=== PATIENT | female | born 1930 ===

== ENCOUNTER 2017-03-15 09:56 | Inpatient (IN) | payer MEDICAID, MEDICARE ==
[2017-03-15 09:56] VITALS: BMI 25.5
[2017-03-15] MEDS ORDERED: Albuterol-Ipratrop 3 mg / 0.5 (3 ml) UD INH STA ×3 (10:11→10:23)
--- NOTE | 2017-03-15 10:19 | C.PDOC ---
History Of Present Illness 86 yr old female with PMHx of asthma, presents to the ER with complaints of SOB , wheezing and dry cough for the past 3 days, worse today. Patient states she has been taking nebulizer treatments at home with no relief. Reports chest pain with cough. Denies fever, nausea, vomiting, abdominal pain, weakness or numbness. Time Seen by Provider: 03/15/17 10:09 Chief Complaint (Nursing): Shortness Of Breath History Per: Patient History/Exam Limitations: no limitations Onset/Duration Of Symptoms: Days (3), Worse Since (today ) Current Symptoms Are (Timing): Still Present Past Medical History Reviewed: Historical Data, Nursing Documentation, Vital Signs Vital Signs: Last Vital Signs Temp 97.5 F L 03/15/17 15:57 Pulse 84 03/15/17 15:57 Resp 18 03/15/17 15:57 BP 125/70 03/15/17 15:57 Pulse Ox 98 03/15/17 15:57 - Medical History PMH: Alzheimer's Disease, Arthritis, Asthma, Back Problems, Gastritis, HTN Surgical History: Pacemaker, - [facility] Procedures INITIAL INSERT TRANS LEADS INTO [employer] (04/19/15) INITIAL INSERTION OF DUAL-CHAMBER DEVICE (04/19/15) Family History: States: No Known Family Hx - Social History Hx Alcohol Use: No Hx Substance Use: No - Immunization History Hx Tetanus Toxoid Vaccination: No Hx Influenza Vaccination: No Hx Pneumococcal Vaccination: Yes Review Of Systems Except As Marked, All Systems Reviewed And Found Negative. Constitutional: Negative for: Fever Cardiovascular: Positive for: Chest Pain (With coughing ) Respiratory: Positive for: Cough (Dry ), Shortness of Breath, Wheezing Gastrointestinal: Negative for: Nausea, Vomiting, Abdominal Pain Neurological: Negative for: Weakness, Numbness Physical Exam - Physical Exam Appears: Non-toxic, No Acute Distress Skin: Warm, Dry, No Rash Head: Atraumatic, Normacephalic Oral Mucosa: Moist Chest: Symmetrical, No Tenderness Cardiovascular: Rhythm Regular, No Murmur Respiratory: No Rales, Wheezing (Diffuse ) Gastrointestinal/Abdominal: Normal Exam, Soft, No Tenderness, No Guarding, No Rebound Extremity: Normal ROM, No Swelling Neurological/Psych: Oriented x3, Normal Speech, Normal Motor ED Course And Treatment - Laboratory Results Result Diagrams: 03/15/17 11:51 03/15/17 10:33 ECG: Interpreted By Me, Viewed By Me ECG Rhythm: V Paced ECG Interpretation: Abnormal Interpretation Of ECG: No stemi. Rate From EC (BPM ) O2 Sat by Pulse Oximetry: 98 (RA ) Pulse Ox Interpretation: Normal - Radiology CXR: Viewed By Me, Read By Radiologist CXR Interpretation: Yes: No Acute Disease Medical Decision Making Medical Decision Making: PLAN: * CXR * EKG * Troponin * CBC * CMP * Duoneb INH * Solumedrol IVP Disposition - Disposition Disposition: HOME/ ROUTINE Disposition Time: 13:00 Condition: STABLE - Clinical Impression Clinical Impression: Asthma exacerbation, Thrombocytopenia - Scribe Statement The provider has reviewed the documentation as recorded by the Donita Cameron Provider Attestation: All medical record entries made by the Donita were at my direction and personally dictated by me. I have reviewed the chart and agree that the record accurately reflects my personal performance of the history, physical exam, medical decision making, and the department course for this patient. I have also personally directed, reviewed, and agree with the discharge instructions and disposition.
[2017-03-15 11:11] LABS: ALBUMIN 4.4 g/dL (3.5-5.0)
[2017-03-15 11:14] LABS: ALB/GLOB RATIO 1.1 (1.0-2.1)
[2017-03-15 11:15] LABS: CALCIUM 9.2 mg/dl (8.6-10.4)
[2017-03-15 11:26] LABS: TROPONIN I 0.027 ng/mL (0.00-0.120)
[2017-03-15 11:59] LABS: BASO # 0.1 K/uL (0.0-0.2); BASO % 0.7 % (0.0-2.0); EOS # 0.1 K/uL (0.0-0.7); EOS % 0.5 % (0.0-4.0); LYMPH # 2.9 K/uL (1.0-4.3); LYMPH % 26.2 % (20.0-40.0); MEAN CELL VOLUME 96.9 fL (81.0-99.0); MEAN CORPUSCULAR HEMOGLOBIN 31.9 pg (27.0-31.0); MEAN PLATELET VOLUME 17.1 fL (7.2-11.7); MONO # 4.7 K/uL (0.0-0.8); MONO % 41.7 % (0.0-10.0); NEUT # 3.5 K/uL (1.8-7.0); NEUT % 30.9 % (50.0-75.0); NRBC % 0.6 % (0.0-2.0); PLATELET COUNT 50 K/uL (130-400); RBC 3.43 Mil/uL (3.80-5.20); RED CELL DISTRIBUTION WIDTH 12.5 % (11.5-14.5); WHITE BLOOD COUNT 11.2 K/uL (4.8-10.8)
--- NOTE | 2017-03-15 12:05 | RAD ---
PROCEDURE: CHEST RADIOGRAPH, 1 VIEW HISTORY: SOB COMPARISON: None available. FINDINGS: LUNGS: Clear. PLEURA: No pneumothorax or pleural fluid seen. CARDIOVASCULAR: Normal heart size. Permanent pacemaker. OSSEOUS STRUCTURES: No significant abnormalities. VISUALIZED UPPER ABDOMEN: Normal. OTHER FINDINGS: None. IMPRESSION: No active disease.
[2017-03-15 12:16] LABS: BANDS 8 % (0-2); BASOPHIL 1 % (0-2); LARGE PLATELETS PRESENT; LYMPHOCYTE 21 % (20-40); METAMYELOCYTE 1 % (0-0); MONOCYTE 36 % (0-10); MYELOCYTE 1 % (0-0); NEUTROPHIL 32 % (50-75); OVALOCYTES SLIGHT; PLATELET ESTIMATE DECREASED (NORMAL); TOTAL CELLS COUNTED 100
[2017-03-15] MEDS ORDERED: Azithromycin 500 MG in Sodium Chloride 0.9% 250 ML IVPB STA (12:42)
[2017-03-15] MEDS ORDERED: Azithromycin 500mg/250ML NS 500 MG/250 ML BAG IVPB ONE (12:54)
--- NOTE | 2017-03-15 14:52 | CP.PCM.CON ---
History of Present Illness - History of Present Illness History of Present Illness: reason for consultation: shortness of breath and wheezing 86-year-old female presented to emergency room complaining of shortness of breath for the past few days. Shortness of breath also associated with abdominal pain mostly after eating. Denies cough, denies fever chills, denies nausea vomiting or diarrhea Review of Systems - Review of Systems All systems: reviewed and no additional remarkable complaints except (shortness of breat cough and wheezing) Past Patient History - Infectious Disease Hx of Infectious Diseases: None - Past Medical History & Family History Past Medical History?: Yes - Past Social History Smoking Status: Never Smoked - CARDIAC Hx Hypertension: Yes Hx Pacemaker: Yes - PULMONARY Hx Asthma: Yes - NEUROLOGICAL Hx Alzheimer's Disease: Yes Hx Dizziness: Yes - HEENT Hx HEENT Problems: No Hx Cataracts: Yes (surgery b/l eyes) - RENAL Hx Chronic Kidney Disease: No - ENDOCRINE/METABOLIC Hx Hypothyroidism: No - HEMATOLOGICAL/ONCOLOGICAL Hx Human Immunodeficiency Virus (HIV): No - INTEGUMENTARY Hx Dermatological Problems: No - MUSCULOSKELETAL/RHEUMATOLOGICAL Hx Arthritis: Yes Hx Falls: Yes Hx Fractures: Yes (3 ribs 2009) - GASTROINTESTINAL Hx Gastritis: Yes Hx Hemorrhoids: Yes - GENITOURINARY/GYNECOLOGICAL Hx Sexually Transmitted Disorders: No Hx Uterine Cancer: Yes (46 years ago) - PSYCHIATRIC Hx Substance Use: No - SURGICAL HISTORY Hx Surgeries: Yes Hx Breast Biopsy: Yes Hx Section: Yes (X 3) Hx Hysterectomy: Yes (family not sure) Other/Comment: RIGHT EYE SURGERY. PACE MAKER - ANESTHESIA Hx Anesthesia: Yes Hx Anesthesia Reactions: No Hx Malignant Hyperthermia: No Has any member of the family had a problem w/ anesthesia?: No Meds Allergies/Adverse Reactions: Allergies Allergy/AdvReac Type Severity Reaction Status Date / Time diclofenac Allergy RASH Verified 03/15/17 10:06 Penicillins Allergy RASH Verified 03/15/17 10:06 - Medications Medications: Current Medications Albuterol/Ipratropium (Duoneb 3 Mg/0.5 Mg (3 Ml) Ud) 3 ml INH RQ6 [facility] Famotidine (Pepcid) 20 mg IVP Q12 [facility] Methylprednisolone (Solu-Medrol) 40 mg IV Q8 [facility] Physical Exam - Head Exam Head Exam: ATRAUMATIC, NORMOCEPHALIC - Eye Exam Eye Exam: Normal appearance - ENT Exam ENT Exam: Mucous Membranes Moist - Neck Exam Neck exam: Positive for: Normal Inspection - Respiratory Exam Respiratory Exam: Rhonchi, Wheezes - Cardiovascular Exam Cardiovascular Exam: REGULAR RHYTHM - GI/Abdominal Exam GI & Abdominal Exam: Normal Bowel Sounds - Extremities Exam Extremities exam: Positive for: normal inspection - Neurological Exam Neurological exam: Alert Results - Vital Signs Recent Vital Signs: Last Vital Signs Temp 98.3 F 03/15/17 12:49 Pulse 74 03/15/17 12:49 Resp 21 03/15/17 12:49 BP 139/48 L 03/15/17 12:49 Pulse Ox 97 03/15/17 12:49 - Labs Result Diagrams: 03/15/17 11:51 03/15/17 10:33 Assessment & Plan (1) Asthma Status: Acute Comment: patient started on IV steroids, nebulizer treatment. Continue Pepcid. Hematology workup for thrombocytopenia. Consider CAT scan of the abdomen
--- NOTE | 2017-03-15 18:01 | CP.PCM.CON ---
History of Present Illness - History of Present Illness History of Present Illness: PATIENT SEEN. FULL CONSULT WILL BE DICTATED Past Patient History - Infectious Disease Hx of Infectious Diseases: None - Past Medical History & Family History Past Medical History?: Yes - Past Social History Smoking Status: Never Smoked - CARDIAC Hx Hypertension: Yes Hx Pacemaker: Yes - PULMONARY Hx Asthma: Yes - NEUROLOGICAL Hx Alzheimer's Disease: Yes Hx Dizziness: Yes - HEENT Hx HEENT Problems: No Hx Cataracts: Yes (surgery b/l eyes) - RENAL Hx Chronic Kidney Disease: No - ENDOCRINE/METABOLIC Hx Hypothyroidism: No - HEMATOLOGICAL/ONCOLOGICAL Hx Human Immunodeficiency Virus (HIV): No - INTEGUMENTARY Hx Dermatological Problems: No - MUSCULOSKELETAL/RHEUMATOLOGICAL Hx Arthritis: Yes Hx Falls: Yes Hx Fractures: Yes (3 ribs 2009) - GASTROINTESTINAL Hx Gastritis: Yes Hx Hemorrhoids: Yes - GENITOURINARY/GYNECOLOGICAL Hx Sexually Transmitted Disorders: No Hx Uterine Cancer: Yes (46 years ago) - PSYCHIATRIC Hx Substance Use: No - SURGICAL HISTORY Hx Surgeries: Yes Hx Breast Biopsy: Yes Hx Section: Yes (X 3) Hx Hysterectomy: Yes (family not sure) Other/Comment: RIGHT EYE SURGERY. PACE MAKER - ANESTHESIA Hx Anesthesia: Yes Hx Anesthesia Reactions: No Hx Malignant Hyperthermia: No Has any member of the family had a problem w/ anesthesia?: No Meds Allergies/Adverse Reactions: Allergies Allergy/AdvReac Type Severity Reaction Status Date / Time diclofenac Allergy RASH Verified 03/15/17 10:06 Penicillins Allergy RASH Verified 03/15/17 10:06 - Medications Medications: Current Medications Albuterol/Ipratropium (Duoneb 3 Mg/0.5 Mg (3 Ml) Ud) 3 ml INH RQ6 [facility] Famotidine (Pepcid) 20 mg IVP DAILY [facility] Methylprednisolone (Solu-Medrol) 40 mg IV Q8 [facility] Results - Vital Signs Recent Vital Signs: Last Vital Signs Temp 97.5 F L 03/15/17 15:57 Pulse 84 03/15/17 15:57 Resp 18 03/15/17 15:57 BP 125/70 03/15/17 15:57 Pulse Ox 98 03/15/17 15:57 - Labs Result Diagrams: 03/15/17 11:51 03/15/17 10:33
[2017-03-15] MEDS: Albuterol-Ipratrop 3 mg / 0.5 (3 ml) UD INH SCH (19:41)
[2017-03-15] MEDS ORDERED: Albuterol 0.083% Inhal Sol (2.5 mg/3 mL) UD INH PRN (19:48)
[2017-03-15] MEDS: Divalproex 125 mg Sprinkle Capsule PO SCH (20:55)
[2017-03-15] MEDS: MethylPREDNISolone 40 mg Vial IV SCH (21:41)
[2017-03-16] MEDS: Albuterol-Ipratrop 3 mg / 0.5 (3 ml) UD INH SCH ×4 (01:08→19:30)
[2017-03-16] MEDS: MethylPREDNISolone 40 mg Vial IV SCH ×3 (05:32→21:10)
[2017-03-16 08:33] LABS: HEMOGLOBIN 10.7 g/dL (11.0-16.0); MEAN CELL VOLUME 96.6 fL (81.0-99.0); MEAN CORPUSCULAR HEMOGLOBIN 32.1 pg (27.0-31.0); MEAN CORPUSCULAR HGB CONC 33.3 g/dL (33.0-37.0); MEAN PLATELET VOLUME 16.9 fL (7.2-11.7); RBC 3.34 Mil/uL (3.80-5.20); RED CELL DISTRIBUTION WIDTH 12.4 % (11.5-14.5)
[2017-03-16 08:51] LABS: CALCIUM 9.1 mg/dl (8.6-10.4); IRON 26 ug/dL (37-170)
[2017-03-16 08:55] LABS: WHITE BLOOD COUNT 4.3 K/uL (4.8-10.8)
[2017-03-16 09:01] LABS: % IRON SATURATION 8 (20-55); TOTAL IRON BINDING CAPACITY 317 ug/dL (250-450)
[2017-03-16] MEDS: Azithromycin 500 MG in Sodium Chloride 0.9% 250 ML IVPB SCH (10:50)
[2017-03-16] MEDS: Potassium Chloride 20 mEq ER Tab PO SCH (10:50)
[2017-03-16 11:02] LABS: FOLATE 12.1 ng/mL
--- NOTE | 2017-03-16 15:25 | CP.PCM.HP ---
History of Present Illness - History of Present Illness History of Present Illness: cc sob . abdominal pain nez perce 86 years old lady new for me , came to [facility] , with sob . and abdominal pain .had h/o asthma , got neb. treament at home but not helpful , was seen by gi ,[facility] . offered some testing . but pt never had chance to go for gi testing ,now we will call gi consult also . pt is coughing , with sob , pul. consult called / Present on Admission - Present on Admission Any Indicators Present on Admission: No History of DVT/PE: No History of Uncontrolled Diabetes: No Urinary Catheter: No Decubitus Ulcer Present: No Review of Systems - Review of Systems Systems not reviewed;Unavailable: Dementia - Constitutional Constitutional: As Per HPI, Fatigue - EENT Eyes: As Per HPI Ears: As Per HPI Nose/Mouth/Throat: As Per HPI - Breasts Breasts: As Per HPI - Cardiovascular Cardiovascular: As Per HPI - Respiratory Respiratory: As Per HPI, Cough, Wheezing, Chest Congestion - Gastrointestinal Gastrointestinal: As Per HPI, Abdominal Pain, Bloating - Genitourinary Genitourinary: As Per HPI - Integumentary Integumentary: As Per HPI - Neurological Neurological: As Per HPI - Psychiatric Psychiatric: As Per HPI - Endocrine Endocrine: As Per HPI - Hematologic/Lymphatic Hematologic: As Per HPI Past Patient History - Infectious Disease Hx of Infectious Diseases: None - Past Medical History & Family History Past Medical History?: Yes - Past Social History Smoking Status: Never Smoked - CARDIAC Hx Hypertension: Yes Hx Pacemaker: Yes - PULMONARY Hx Asthma: Yes - NEUROLOGICAL Hx Alzheimer's Disease: Yes - HEENT Hx HEENT Problems: No Hx Cataracts: Yes (surgery b/l eyes) - RENAL Hx Chronic Kidney Disease: No - ENDOCRINE/METABOLIC Hx Hypothyroidism: No - HEMATOLOGICAL/ONCOLOGICAL Hx Human Immunodeficiency Virus (HIV): No - INTEGUMENTARY Hx Dermatological Problems: No - MUSCULOSKELETAL/RHEUMATOLOGICAL Hx Arthritis: Yes - GASTROINTESTINAL Hx Gastritis: Yes - GENITOURINARY/GYNECOLOGICAL Hx Sexually Transmitted Disorders: No Hx Uterine Cancer: Yes (46 years ago) - PSYCHIATRIC Hx Substance Use: No - SURGICAL HISTORY Hx Surgeries: Yes Hx Breast Biopsy: Yes Hx Section: Yes (X 3) Hx Hysterectomy: Yes (family not sure) Other/Comment: RIGHT EYE SURGERY. PACE MAKER - ANESTHESIA Hx Anesthesia: Yes Hx Anesthesia Reactions: No Hx Malignant Hyperthermia: No Has any member of the family had a problem w/ anesthesia?: No Meds Allergies/Adverse Reactions: Allergies Allergy/AdvReac Type Severity Reaction Status Date / Time diclofenac Allergy RASH Verified 03/15/17 10:06 Penicillins Allergy RASH Verified 03/15/17 10:06 Physical Exam - Constitutional Appears: Well - Head Exam Head Exam: ATRAUMATIC, NORMAL INSPECTION, NORMOCEPHALIC - Eye Exam Eye Exam: EOMI, Normal appearance, PERRL Pupil Exam: NORMAL ACCOMODATION, PERRL - ENT Exam ENT Exam: Mucous Membranes Moist, Normal Exam - Neck Exam Neck exam: Positive for: Normal Inspection - Respiratory Exam Respiratory Exam: Clear to Auscultation Bilateral, NORMAL BREATHING PATTERN - Cardiovascular Exam Cardiovascular Exam: REGULAR RHYTHM - GI/Abdominal Exam GI & Abdominal Exam: Normal Bowel Sounds, Soft. absent: Tenderness - Rectal Exam Rectal Exam: NORMAL INSPECTION - Exam Exam: Circumcision, NORMAL INSPECTION External exam: NORMAL EXTERNAL EXAM Speculum exam: NORMAL SPECULUM EXAM Bimanual exam: NORMAL BIMANUAL EXAM - Extremities Exam Extremities exam: Positive for: normal inspection - Back Exam Back exam: NORMAL INSPECTION - Neurological Exam Neurological exam: Alert, CN II-XII Intact, Normal Gait, Oriented x3, Reflexes Normal - Psychiatric Exam Psychiatric exam: Normal Affect, Normal Mood - Skin Skin Exam: Dry, Intact, Normal Color, Warm Results - Vital Signs Recent Vital Signs: Last Vital Signs Temp 98 F 03/16/17 07:00 Pulse 90 03/16/17 07:00 Resp 20 03/16/17 07:00 BP 121/55 L 03/16/17 07:00 Pulse Ox 100 03/16/17 07:00 - Labs Result Diagrams: 03/16/17 08:25 03/16/17 08:25 Labs: Laboratory Results - last 24 hr 03/15/17 03/16/17 03/16/17 21:23 06:38 08:25 WBC 4.3 L D RBC 3.34 L Hgb 10.7 L Hct 32.2 L MCV 96.6 MCH 32.1 H MCHC 33.3 RDW 12.4 Plt Count 52 L MPV 16.9 H Differential Comment Sodium Potassium Chloride Carbon Dioxide Anion Gap BUN Creatinine Est GFR ( Amer) Est GFR (Non-Af Amer) POC Glucose (mg/dL) 249 H 189 H Random Glucose Hemoglobin A1c Calcium Iron TIBC % Saturation Triglycerides Cholesterol LDL Cholesterol Direct HDL Cholesterol Vitamin B12 Folate TSH 3rd Generation 03/16/17 03/16/17 03/16/17 08:25 08:25 08:25 WBC RBC Hgb Hct MCV MCH MCHC RDW Plt Count MPV Differential Comment Sodium 135 Potassium 3.4 L Chloride 95 L Carbon Dioxide 23 Anion Gap 20 BUN 31 H Creatinine 1.6 H Est GFR ( Amer) 37 Est GFR (Non-Af Amer) 30 POC Glucose (mg/dL) Random Glucose 174 H Hemoglobin A1c 6.1 Calcium 9.1 Iron 26 L TIBC 317 % Saturation 8 L Triglycerides 68 Cholesterol 142 LDL Cholesterol Direct 56 HDL Cholesterol 58 Vitamin B12 956 H Folate 12.1 TSH 3rd Generation 1.00 Assessment & Plan (1) Asthma Status: Acute (2) Asthma exacerbation Status: Acute (3) Thrombocytopenia Status: Acute (4) AV block Status: Acute (5) Abdominal pain Status: Acute Comment: gi consult called . gi series orderd ,made pepcid bid . (6) Blood pressure elevated Status: Acute (7) Chest pain Status: Acute (8) Chronic headache disorder Status: Acute Decision To Admit - Admit Certification Admit to Inpatient:: need more than 2 days in the hospital .
--- NOTE | 2017-03-16 15:35 | CP.PCM.PN ---
Subjective - Date & Time of Evaluation Date of Evaluation: 03/16/17 Time of Evaluation: 13:00 - Subjective Subjective: patient seen and examined Sitting comfortably in no acute distress Still complaining of cough and wheezing no further abdominal pain Objective - Vital Signs/Intake and Output Vital Signs (last 24 hours): Temp Pulse Resp BP Pulse Ox 98 F 90 20 121/55 L 100 03/16/17 07:00 03/16/17 07:00 03/16/17 07:00 03/16/17 07:00 03/16/17 07:00 Intake and Output: 03/16/17 03/16/17 06:59 18:59 Output Total 0 Balance 0 - Medications Medications: Current Medications Albuterol Sulfate (Albuterol 0.083% Inhal Juliana (2.5 Mg/3 Ml) Ud) 2.5 mg INH RQ6 PRN PRN Reason: Shortness of Breath Albuterol/Ipratropium (Duoneb 3 Mg/0.5 Mg (3 Ml) Ud) 3 ml INH RQ6 [facility] Last Admin: 03/16/17 13:31 Dose: 3 ml Aspirin (Ecotrin) 81 mg PO DAILY [facility] Last Admin: 03/16/17 10:50 Dose: 81 mg Divalproex Sodium (Depakote Sprinkles) 125 mg PO DAILY@1700 [facility] Last Admin: 03/15/17 20:55 Dose: 125 mg Donepezil HCl (Aricept) 10 mg PO HS [facility] Last Admin: 03/15/17 21:41 Dose: 10 mg Famotidine (Pepcid) 20 mg PO DAILY [facility] Hydrochlorothiazide (Hydrodiuril) 25 mg PO DAILY [facility] Last Admin: 03/16/17 10:50 Dose: 25 mg Azithromycin 500 mg/ Sodium (Chloride) 250 mls @ 250 mls/hr IVPB DAILY [facility] Last Admin: 03/16/17 10:50 Dose: 250 mls/hr Iron (Ferocon) 1 cap PO DAILY [facility] Memantine (Namenda) 10 mg PO DAILY [facility] Last Admin: 03/16/17 10:50 Dose: 10 mg Methylprednisolone (Solu-Medrol) 20 mg IV Q8 [facility] Metoprolol Tartrate (Lopressor) 50 mg PO BID [facility] Last Admin: 03/16/17 10:50 Dose: 50 mg Potassium Chloride (K-Dur 20 Meq Er Tab) 20 meq PO DAILY [facility] Last Admin: 03/16/17 10:50 Dose: 20 meq Potassium Chloride (Klor-Con 10) 10 meq PO BRK [facility] - Labs Labs: 03/16/17 08:25 03/16/17 08:25 - Head Exam Head Exam: ATRAUMATIC, NORMOCEPHALIC - Eye Exam Eye Exam: Normal appearance - ENT Exam ENT Exam: Mucous Membranes Moist - Neck Exam Neck Exam: Normal Inspection - Respiratory Exam Respiratory Exam: Rhonchi, Wheezes Assessment and Plan (1) Asthma Assessment & Plan: continue nebulizer treatment and taper steroids Status: Acute
[2017-03-16] MEDS ORDERED: Divalproex 125 mg Sprinkle Capsule PO SCH (17:00)
[2017-03-16] MEDS: Divalproex 125 mg Sprinkle Capsule PO SCH (17:29)
[2017-03-16] MEDS: Potassium Chloride 10 mEq ER Tab PO SCH (17:29)
[2017-03-16] MEDS: Ferrous Fum/Folic Acid/IF/VI 1 Cap PO SCH (17:29)
[2017-03-16] MEDS: Albuterol 0.083% Inhal Sol (2.5 mg/3 mL) UD INH PRN (21:14)
[2017-03-16] MEDS ORDERED: Acetylcysteine 20% Inhal Soln (4ml) INH STA (21:34)
[2017-03-17] MEDS: Albuterol-Ipratrop 3 mg / 0.5 (3 ml) UD INH SCH ×4 (01:59→19:41)
[2017-03-17] MEDS: guaiFENesin 200 mg/10 ml Syrup UD PO PRN (06:51)
[2017-03-17] MEDS: MethylPREDNISolone 40 mg Vial IV SCH ×3 (06:51→21:15)
[2017-03-17 07:38] LABS: HEMOGLOBIN 10.8 g/dL (11.0-16.0); MEAN CELL VOLUME 97.2 fL (81.0-99.0); MEAN CORPUSCULAR HGB CONC 32.9 g/dL (33.0-37.0); MEAN PLATELET VOLUME 17.1 fL (7.2-11.7); RBC 3.39 Mil/uL (3.80-5.20); RED CELL DISTRIBUTION WIDTH 12.5 % (11.5-14.5)
[2017-03-17 07:52] LABS: CALCIUM 9.3 mg/dl (8.6-10.4)
[2017-03-17] MEDS ORDERED: Barium Sulfate for Susp 98% w/w 340g Bottle ONE (07:57)
[2017-03-17] MEDS ORDERED: Barium Sulfate for Susp 96% w/w 176g Bottle PR ONE (07:57)
[2017-03-17] MEDS: Potassium Chloride 10 mEq ER Tab PO SCH (08:03)
[2017-03-17] MEDS: Azithromycin 500 MG in Sodium Chloride 0.9% 250 ML IVPB SCH (09:50)
[2017-03-17] MEDS: Ferrous Fum/Folic Acid/IF/VI 1 Cap PO SCH (09:51)
[2017-03-17] MEDS: Potassium Chloride 20 mEq ER Tab PO SCH (09:51)
--- NOTE | 2017-03-17 11:00 | CP.PCM.CON ---
<Ana Maria Brown - Last Filed: 03/17/17 11:04> History of Present Illness - History of Present Illness History of Present Illness: PGY4 GI Fellow Consult Note This is a 86yF with pmhx of Alzheimer's dementia, gastritis, asthma, HTN. Pt pw to ER with SOB and found to have asthma exacerbation.Pt was complaining about abdominal pain in the epigatric area however pt is a very poor historian due to her dementia. Per nursing staff, pt's daughter reports abdominal pain for a few months with a 20 pound weight loss and decreased appetite. Pt reports EGD in the past and colonoscopy recently. Pt says her pain is caused by reflux however denies heart burn. Pt is really unable to describe her pain but reports it is not associated with food and denies nausea, vomiting, diarrhea, constipation or bloating. A call was placed to pt's daughter, waiting a call back. Also, pt was apparently coming to the hospital for a upper GI series when she developed SOB. Pt is on pepcid as an outpt and had an Abdominal US and CTA/P in January 2017 with diverticulosis, mildly distended SB with wall thickening, gallbladder wnl. ROS:A 12pt ROS was obtained and was negative excpet as mentioned above. PmHx:as stated in HPI PsHX: unable to be obtained pt poor historian FHx: unable to be obtained pt poor historian SHx: unable to be obtained pt poor historian Review of Systems - Review of Systems Systems not reviewed;Unavailable: Respiratory Distress, Dementia - Respiratory Respiratory: Cough, Dyspnea, Dyspnea on Exertion, Wheezing - Gastrointestinal Gastrointestinal: Abdominal Pain, Heartburn. absent: Bloating (A 12pt ROS obtained as mentioned in HPI), Cramping, Diarrhea, Excessive Flatus, Hematemesis , Hematochezia, Melena, Nausea, Vomiting Past Patient History - Infectious Disease Hx of Infectious Diseases: None - Past Medical History & Family History Past Medical History?: Yes - Past Social History Smoking Status: Never Smoked - CARDIAC Hx Hypertension: Yes Hx Pacemaker: Yes - PULMONARY Hx Asthma: Yes - NEUROLOGICAL Hx Alzheimer's Disease: Yes - HEENT Hx HEENT Problems: No Hx Cataracts: Yes (surgery b/l eyes) - RENAL Hx Chronic Kidney Disease: No - ENDOCRINE/METABOLIC Hx Hypothyroidism: No - HEMATOLOGICAL/ONCOLOGICAL Hx Human Immunodeficiency Virus (HIV): No - INTEGUMENTARY Hx Dermatological Problems: No - MUSCULOSKELETAL/RHEUMATOLOGICAL Hx Arthritis: Yes - GASTROINTESTINAL Hx Gastritis: Yes - GENITOURINARY/GYNECOLOGICAL Hx Sexually Transmitted Disorders: No Hx Uterine Cancer: Yes (46 years ago) - PSYCHIATRIC Hx Substance Use: No - SURGICAL HISTORY Hx Surgeries: Yes Hx Breast Biopsy: Yes Hx Section: Yes (X 3) Hx Hysterectomy: Yes (family not sure) Other/Comment: RIGHT EYE SURGERY. PACE [employer] - ANESTHESIA Hx Anesthesia: Yes Hx Anesthesia Reactions: No Hx Malignant Hyperthermia: No Has any member of the family had a problem w/ anesthesia?: No Meds Allergies/Adverse Reactions: Allergies Allergy/AdvReac Type Severity Reaction Status Date / Time diclofenac Allergy RASH Verified 03/15/17 10:06 Penicillins Allergy RASH Verified 03/15/17 10:06 - Medications Medications: Current Medications Albuterol Sulfate (Albuterol 0.083% Inhal Juliana (2.5 Mg/3 Ml) Ud) 2.5 mg INH RQ2 PRN PRN Reason: Shortness of Breath Last Admin: 03/16/17 21:14 Dose: 2.5 mg Albuterol/Ipratropium (Duoneb 3 Mg/0.5 Mg (3 Ml) Ud) 3 ml INH RQ6 [facility] Last Admin: 03/17/17 08:17 Dose: 3 ml Aspirin (Ecotrin) 81 mg PO DAILY [facility] Last Admin: 03/17/17 09:51 Dose: 81 mg Divalproex Sodium (Depakote Sprinkles) 125 mg PO DAILY@1700 [facility] Last Admin: 03/16/17 17:29 Dose: 125 mg Donepezil HCl (Aricept) 10 mg PO DAILY@1700 [facility] Last Admin: 03/16/17 20:40 Dose: 10 mg Famotidine (Pepcid) 20 mg PO DAILY [facility] Last Admin: 03/17/17 09:51 Dose: 20 mg Guaifenesin (Robitussin) 200 mg PO Q4H PRN PRN Reason: Cough and congestion Last Admin: 03/17/17 06:51 Dose: 200 mg Hydrochlorothiazide (Hydrodiuril) 25 mg PO DAILY [facility] Last Admin: 03/17/17 09:51 Dose: 25 mg Azithromycin 500 mg/ Sodium (Chloride) 250 mls @ 250 mls/hr IVPB DAILY [facility] Last Admin: 03/17/17 09:50 Dose: 250 mls/hr Iron (Ferocon) 1 cap PO DAILY [facility] Last Admin: 03/17/17 09:51 Dose: 1 cap Memantine (Namenda) 10 mg PO DAILY [facility] Last Admin: 03/17/17 09:51 Dose: 10 mg Methylprednisolone (Solu-Medrol) 20 mg IV Q8 [facility] Last Admin: 03/17/17 06:51 Dose: 20 mg Metoprolol Tartrate (Lopressor) 50 mg PO BID [facility] Last Admin: 03/17/17 09:51 Dose: 50 mg Potassium Chloride (K-Dur 20 Meq Er Tab) 20 meq PO DAILY [facility] Last Admin: 03/17/17 09:51 Dose: 20 meq Potassium Chloride (Klor-Con 10) 10 meq PO BRK [facility] Last Admin: 03/17/17 08:03 Dose: Not Given Physical Exam - Constitutional Appears: Well, Confused - Head Exam Head Exam: ATRAUMATIC, NORMAL INSPECTION, NORMOCEPHALIC - Eye Exam Eye Exam: EOMI, Normal appearance Pupil Exam: NORMAL ACCOMODATION, PERRL - ENT Exam ENT Exam: Mucous Membranes Moist, Normal Exam - Neck Exam Neck exam: Positive for: Full Rom, Normal Inspection - Respiratory Exam Respiratory Exam: Rhonchi, Wheezes, Respiratory Distress - Cardiovascular Exam Cardiovascular Exam: Tachycardia, REGULAR RHYTHM, +S1, +S2 - GI/Abdominal Exam GI & Abdominal Exam: Normal Bowel Sounds, Soft. absent: Distended, Firm, Organomegaly, Rebound, Rigid, Tenderness - Rectal Exam Rectal Exam: Deferred - Extremities Exam Extremities exam: Positive for: full ROM, normal inspection - Back Exam Back exam: NORMAL INSPECTION. absent: tenderness - Neurological Exam Neurological exam: Alert Additional comments: dementia, poor historian - Psychiatric Exam Psychiatric exam: Normal Affect, Normal Mood - Skin Skin Exam: Intact, Normal Color, Warm Results - Vital Signs Recent Vital Signs: Last Vital Signs Temp 98.0 F 03/16/17 23:15 Pulse 95 H 03/17/17 01:00 Resp 20 03/16/17 23:15 BP 123/70 03/16/17 23:15 Pulse Ox 94 L 03/16/17 23:15 - Labs Result Diagrams: 03/17/17 07:17 03/17/17 07:14 Labs: Laboratory Results - last 24 hr 07/12/2803/16/17 03/17/17 08:25 08:25 07:14 WBC RBC Hgb Hct MCV MCH MCHC RDW Plt Count MPV Differential Comment Sodium 137 Potassium 4.3 Chloride 101 Carbon Dioxide 23 Anion Gap 18 BUN 44 H Creatinine 2.0 H Est GFR ( Amer) 28 Est GFR (Non-Af Amer) 24 Random Glucose 137 H Calcium 9.3 Vitamin B12 956 H Folate 12.1 03/17/17 07:17 WBC 9.0 D RBC 3.39 L Hgb 10.8 L Hct 33.0 L MCV 97.2 MCH 32.0 H MCHC 32.9 L RDW 12.5 Plt Count 51 L MPV 17.1 H Differential Comment Sodium Potassium Chloride Carbon Dioxide Anion Gap BUN Creatinine Est GFR ( Amer) Est GFR (Non-Af Amer) Random Glucose Calcium Vitamin B12 Folate Assessment & Plan - Assessment and Plan (Free Text) Assessment: This is a 86yF pw with SOB and asthma exacerbation. Pt co of abdominal pain for a few months with reported weight loss. Abdominal Pain Asthma Exacerbation Thrombocytopenia Alzheimer's Dementia Plan: Abdominal pain-will order upper GI series as it was already ordered by primary GI doctor as outpt Abdominal flat plate negative, will order bowel regimen and continue Pepcid for reported reflux disease. Will obtain MR from primary GI physician as outpt Thrombocytopenia-maybe 2/ medication induced with valproic acid and pepcid, no active bleeding, continue to monitor Alzheimer's dementia-continue medication Asthma Exacerbation-medical management <Ethan Melvin - Last Filed: 03/17/17 12:09> Meds - Medications Medications: Current Medications Albuterol Sulfate (Albuterol 0.083% Inhal Juliana (2.5 Mg/3 Ml) Ud) 2.5 mg INH RQ2 PRN PRN Reason: Shortness of Breath Last Admin: 03/16/17 21:14 Dose: 2.5 mg Albuterol/Ipratropium (Duoneb 3 Mg/0.5 Mg (3 Ml) Ud) 3 ml INH RQ6 [facility] Last Admin: 03/17/17 08:17 Dose: 3 ml Aspirin (Ecotrin) 81 mg PO DAILY [facility] Last Admin: 03/17/17 09:51 Dose: 81 mg Divalproex Sodium (Depakote Sprinkles) 125 mg PO DAILY@1700 [facility] Last Admin: 03/16/17 17:29 Dose: 125 mg Donepezil HCl (Aricept) 10 mg PO DAILY@1700 [facility] Last Admin: 03/16/17 20:40 Dose: 10 mg Famotidine (Pepcid) 20 mg PO DAILY [facility] Last Admin: 03/17/17 09:51 Dose: 20 mg Guaifenesin (Robitussin) 200 mg PO Q4H PRN PRN Reason: Cough and congestion Last Admin: 03/17/17 06:51 Dose: 200 mg Hydrochlorothiazide (Hydrodiuril) 25 mg PO DAILY [facility] Last Admin: 03/17/17 09:51 Dose: 25 mg Azithromycin 500 mg/ Sodium (Chloride) 250 mls @ 250 mls/hr IVPB DAILY [facility] Last Admin: 03/17/17 09:50 Dose: 250 mls/hr Iron (Ferocon) 1 cap PO DAILY [facility] Last Admin: 03/17/17 09:51 Dose: 1 cap Memantine (Namenda) 10 mg PO DAILY [facility] Last Admin: 03/17/17 09:51 Dose: 10 mg Methylprednisolone (Solu-Medrol) 20 mg IV Q8 [facility] Last Admin: 03/17/17 06:51 Dose: 20 mg Metoprolol Tartrate (Lopressor) 50 mg PO BID [facility] Last Admin: 03/17/17 09:51 Dose: 50 mg Potassium Chloride (K-Dur 20 Meq Er Tab) 20 meq PO DAILY [facility] Last Admin: 03/17/17 09:51 Dose: 20 meq Potassium Chloride (Klor-Con 10) 10 meq PO BRK [facility] Last Admin: 03/17/17 08:03 Dose: Not Given Results - Vital Signs Recent Vital Signs: Last Vital Signs Temp 97.6 F 03/17/17 08:00 Pulse 82 03/17/17 08:00 Resp 18 03/17/17 08:00 BP 136/64 03/17/17 08:00 Pulse Ox 100 03/17/17 08:00 - Labs Result Diagrams: 03/17/17 07:17 03/17/17 07:14 Labs: Laboratory Results - last 24 hr 03/17/17 03/17/17 07:14 07:17 WBC 9.0 D RBC 3.39 L Hgb 10.8 L Hct 33.0 L MCV 97.2 MCH 32.0 H MCHC 32.9 L RDW 12.5 Plt Count 51 L MPV 17.1 H Sodium 137 Potassium 4.3 Chloride 101 Carbon Dioxide 23 Anion Gap 18 BUN 44 H Creatinine 2.0 H Est GFR ( Amer) 28 Est GFR (Non-Af Amer) 24 Random Glucose 137 H Calcium 9.3 Attending/Attestation - Attestation I have personally seen and examined this patient.: Yes I have fully participated in the care of the patient.: Yes I have reviewed all pertinent clinical information: Yes Notes (Text): 03/17/17 12:06 86 year old female admitted with asthma exacerbation, she has also been complaining of abdominal pain and weight loss. 1. Abdominal pain 2. Weight loss Plan: -CT scan from January reviewed, unremarkable -continue pepcid -outside GI had ordered upper GI series, so will proceed with this inpatient -advance diet as tolerated
--- NOTE | 2017-03-17 15:38 | RAD ---
HISTORY: abdomial pain and weight loss COMPARISON: No prior. FINDINGS: BOWEL: Normal bowel gas pattern. No evidence of bowel obstruction. No hepatic or splenic enlargement. No masses or abnormal calcifications. No free intraperitoneal air. BONES: Mild lumbar dextroscoliosis. OTHER FINDINGS: None. IMPRESSION: No bowel obstruction
[2017-03-17] MEDS: POLYETHYLENE GLYCOL 3350 17 GM/Dose PACKET PO SCH (16:48)
--- NOTE | 2017-03-17 17:22 | RAD ---
PROCEDURE: Upper GI series dated 03/17/2017. HISTORY: Abdominal pain. Weight loss. COMPARISON: No prior study available for comparison TECHNIQUE: Single contrast esophagram and upper GI series performed. FINDINGS: The esophagus exhibits normal contour, caliber and distensibility. Incomplete clearing of barium from the esophagus suggests all underlying over mild dysmotility. Small hiatal hernia. . No gross of gastroesophageal reflux demonstrated The stomach exhibited normal contour and caliber fills distensibility. Rugal fold pattern appears grossly unremarkable. No evidence of persistent intraluminal or extrinsic filling defects. No gastric ulcerations. Note that the duodenal bulb was never fully visualized during this procedure the patient is relatively mobility reflux. Contrast flowed into the small bowel without obstruction or delay. IMPRESSION: Slightly limited single contrast study. Study demonstrated incomplete clearing of barium from esophagus suggesting mild dysmotility. Tiny hiatal hernia. No gross gastroesophageal reflux during this procedure.
--- NOTE | 2017-03-17 17:36 | CP.PCM.PN ---
Subjective - Date & Time of Evaluation Date of Evaluation: 03/17/17 Time of Evaluation: 14:25 - Subjective Subjective: The patient seen and examined. Less shortness of breath and cough Still wheezing Objective - Vital Signs/Intake and Output Vital Signs (last 24 hours): Temp Pulse Resp BP Pulse Ox 97.7 F 82 20 153/82 H 95 03/17/17 16:00 03/17/17 16:00 03/17/17 16:00 03/17/17 16:00 03/17/17 16:00 Intake and Output: 03/17/17 03/17/17 06:59 18:59 Intake Total 480 Balance 480 - Medications Medications: Current Medications Albuterol Sulfate (Albuterol 0.083% Inhal Juliana (2.5 Mg/3 Ml) Ud) 2.5 mg INH RQ2 PRN PRN Reason: Shortness of Breath Last Admin: 03/16/17 21:14 Dose: 2.5 mg Albuterol/Ipratropium (Duoneb 3 Mg/0.5 Mg (3 Ml) Ud) 3 ml INH RQ6 [facility] Last Admin: 03/17/17 13:55 Dose: 3 ml Aspirin (Ecotrin) 81 mg PO DAILY [facility] Last Admin: 03/17/17 09:51 Dose: 81 mg Divalproex Sodium (Depakote Sprinkles) 125 mg PO DAILY@1700 [facility] Last Admin: 03/16/17 17:29 Dose: 125 mg Donepezil HCl (Aricept) 10 mg PO DAILY [facility] Famotidine (Pepcid) 20 mg PO DAILY [facility] Last Admin: 03/17/17 09:51 Dose: 20 mg Guaifenesin (Robitussin) 200 mg PO Q4H PRN PRN Reason: Cough and congestion Last Admin: 03/17/17 06:51 Dose: 200 mg Hydrochlorothiazide (Hydrodiuril) 25 mg PO DAILY [facility] Last Admin: 03/17/17 09:51 Dose: 25 mg Azithromycin 500 mg/ Sodium (Chloride) 250 mls @ 250 mls/hr IVPB DAILY [facility] Last Admin: 03/17/17 09:50 Dose: 250 mls/hr Iron (Ferocon) 1 cap PO DAILY [facility] Last Admin: 03/17/17 09:51 Dose: 1 cap Memantine (Namenda) 10 mg PO DAILY [facility] Last Admin: 03/17/17 09:51 Dose: 10 mg Methylprednisolone (Solu-Medrol) 10 mg IV Q8 [facility] Metoprolol Tartrate (Lopressor) 50 mg PO BID [facility] Last Admin: 03/17/17 09:51 Dose: 50 mg Polyethylene Glycol (Miralax) 17 gm PO DAILY [facility] Last Admin: 03/17/17 16:48 Dose: 17 gm Potassium Chloride (K-Dur 20 Meq Er Tab) 20 meq PO DAILY [facility] Last Admin: 03/17/17 09:51 Dose: 20 meq Potassium Chloride (Klor-Con 10) 10 meq PO BRK [facility] Last Admin: 03/17/17 08:03 Dose: Not Given - Labs Labs: 03/17/17 07:17 03/17/17 07:14 - Head Exam Head Exam: ATRAUMATIC, NORMOCEPHALIC - Eye Exam Eye Exam: Normal appearance - ENT Exam ENT Exam: Mucous Membranes Moist - Neck Exam Neck Exam: Full ROM, Normal Inspection - Respiratory Exam Respiratory Exam: Rhonchi, Wheezes - Cardiovascular Exam Cardiovascular Exam: REGULAR RHYTHM - GI/Abdominal Exam GI & Abdominal Exam: Soft, Normal Bowel Sounds Assessment and Plan (1) Asthma Assessment & Plan: continue IV steroids, nebulizer treatment and antibiotics Status: Acute
--- NOTE | 2017-03-17 17:50 | CP.PCM.PN ---
Subjective - Date & Time of Evaluation Date of Evaluation: 03/17/17 Time of Evaluation: 19:00 - Subjective Subjective: History of Present Illness: PGY4 GI Fellow Consult Note This is a 86yF with pmhx of Alzheimer's dementia, gastritis, asthma, HTN. Pt pw to ER with SOB and found to have asthma exacerbation.Pt was complaining about abdominal pain in the epigatric area however pt is a very poor historian due to her dementia. Per nursing staff, pt's daughter reports abdominal pain for a few months with a 20 pound weight loss and decreased appetite. Pt reports EGD in the past and colonoscopy recently. Pt says her pain is caused by reflux however denies heart burn. Pt is really unable to describe her pain but reports it is not associated with food and denies nausea, vomiting, diarrhea, constipation or bloating. A call was placed to pt's daughter, waiting a call back. Also, pt was apparently coming to the hospital for a upper GI series when she developed SOB. Pt is on pepcid as an outpt and had an Abdominal US and CTA/P in January 2017 with diverticulosis, mildly distended SB with wall thickening, gallbladder wnl. Objective - Vital Signs/Intake and Output Vital Signs (last 24 hours): Temp Pulse Resp BP Pulse Ox 97.7 F 82 20 153/82 H 95 03/17/17 16:00 03/17/17 16:00 03/17/17 16:00 03/17/17 16:00 03/17/17 16:00 Intake and Output: 03/17/17 03/17/17 06:59 18:59 Intake Total 480 Balance 480 - Medications Medications: Current Medications Albuterol Sulfate (Albuterol 0.083% Inhal Juliana (2.5 Mg/3 Ml) Ud) 2.5 mg INH RQ2 PRN PRN Reason: Shortness of Breath Last Admin: 03/16/17 21:14 Dose: 2.5 mg Albuterol/Ipratropium (Duoneb 3 Mg/0.5 Mg (3 Ml) Ud) 3 ml INH RQ6 [facility] Last Admin: 03/17/17 13:55 Dose: 3 ml Aspirin (Ecotrin) 81 mg PO DAILY [facility] Last Admin: 03/17/17 09:51 Dose: 81 mg Divalproex Sodium (Depakote Sprinkles) 125 mg PO DAILY@1700 [facility] Last Admin: 03/16/17 17:29 Dose: 125 mg Donepezil HCl (Aricept) 10 mg PO DAILY [facility] Famotidine (Pepcid) 20 mg PO DAILY [facility] Last Admin: 03/17/17 09:51 Dose: 20 mg Guaifenesin (Robitussin) 200 mg PO Q4H PRN PRN Reason: Cough and congestion Last Admin: 03/17/17 06:51 Dose: 200 mg Hydrochlorothiazide (Hydrodiuril) 25 mg PO DAILY [facility] Last Admin: 03/17/17 09:51 Dose: 25 mg Azithromycin 500 mg/ Sodium (Chloride) 250 mls @ 250 mls/hr IVPB DAILY [facility] Last Admin: 03/17/17 09:50 Dose: 250 mls/hr Iron (Ferocon) 1 cap PO DAILY [facility] Last Admin: 03/17/17 09:51 Dose: 1 cap Memantine (Namenda) 10 mg PO DAILY [facility] Last Admin: 03/17/17 09:51 Dose: 10 mg Methylprednisolone (Solu-Medrol) 10 mg IV Q8 [facility] Metoprolol Tartrate (Lopressor) 50 mg PO BID [facility] Last Admin: 03/17/17 09:51 Dose: 50 mg Polyethylene Glycol (Miralax) 17 gm PO DAILY [facility] Last Admin: 03/17/17 16:48 Dose: 17 gm Potassium Chloride (K-Dur 20 Meq Er Tab) 20 meq PO DAILY [facility] Last Admin: 03/17/17 09:51 Dose: 20 meq Potassium Chloride (Klor-Con 10) 10 meq PO BRK [facility] Last Admin: 03/17/17 08:03 Dose: Not Given - Labs Labs: 03/17/17 07:17 03/17/17 07:14 - Constitutional Appears: Well - Head Exam Head Exam: ATRAUMATIC, NORMAL INSPECTION, NORMOCEPHALIC - Eye Exam Eye Exam: EOMI, Normal appearance, PERRL Pupil Exam: NORMAL ACCOMODATION, PERRL - ENT Exam ENT Exam: Mucous Membranes Moist, Normal Exam - Neck Exam Neck Exam: Full ROM, Normal Inspection. absent: Lymphadenopathy - Respiratory Exam Respiratory Exam: Clear to Ausculation Bilateral, NORMAL BREATHING PATTERN - Cardiovascular Exam Cardiovascular Exam: REGULAR RHYTHM, +S1, +S2. absent: Murmur - GI/Abdominal Exam GI & Abdominal Exam: Soft, Normal Bowel Sounds. absent: Tenderness - Extremities Exam Extremities Exam: Full ROM, Normal Capillary Refill, Normal Inspection. absent : Joint Swelling, Pedal Edema - Back Exam Back Exam: NORMAL INSPECTION - Neurological Exam Neurological Exam: Alert, Awake, CN II-XII Intact, Normal Gait, Oriented x3 - Psychiatric Exam Psychiatric exam: Normal Affect, Normal Mood - Skin Skin Exam: Dry, Intact, Normal Color, Warm Assessment and Plan (1) Asthma Status: Acute (2) Asthma exacerbation Status: Acute (3) Thrombocytopenia Status: Acute (4) AV block Status: Acute (5) Abdominal pain Status: Acute (6) Blood pressure elevated Status: Acute (7) Chest pain Status: Acute (8) Chronic headache disorder Status: Acute - Assessment and Plan (Free Text) Assessment: 86 years old lady with above multiple medicle problems as above , getting better , gi and communications and signals supervisor are on the case . gi dvt pro. brandy present treatment
[2017-03-17] MEDS: Divalproex 125 mg Sprinkle Capsule PO SCH (18:59)
[2017-03-18] MEDS: Albuterol-Ipratrop 3 mg / 0.5 (3 ml) UD INH SCH ×4 (01:17→19:16)
[2017-03-18] MEDS: guaiFENesin 200 mg/10 ml Syrup UD PO PRN ×2 (04:00→18:11)
[2017-03-18] MEDS: MethylPREDNISolone 40 mg Vial IV SCH ×3 (06:43→21:17)
[2017-03-18] MEDS: Potassium Chloride 10 mEq ER Tab PO SCH (09:00)
[2017-03-18] MEDS: Ferrous Fum/Folic Acid/IF/VI 1 Cap PO SCH (10:55)
[2017-03-18] MEDS: Azithromycin 500 MG in Sodium Chloride 0.9% 250 ML IVPB SCH (10:56)
[2017-03-18] MEDS: POLYETHYLENE GLYCOL 3350 17 GM/Dose PACKET PO SCH (10:58)
[2017-03-18 12:00] LABS: BASO % 0.3 % (0.0-2.0); EOS % 0.1 % (0.0-4.0); HEMOGLOBIN 11.1 g/dL (11.0-16.0); LYMPH # 0.5 K/uL (1.0-4.3); LYMPH % 8.5 % (20.0-40.0); MEAN CELL VOLUME 96.6 fL (81.0-99.0); MEAN CORPUSCULAR HEMOGLOBIN 32.2 pg (27.0-31.0); MEAN CORPUSCULAR HGB CONC 33.3 g/dL (33.0-37.0); MEAN PLATELET VOLUME 16.5 fL (7.2-11.7); MONO # 0.5 K/uL (0.0-0.8); MONO % 7.7 % (0.0-10.0); NEUT % 83.4 % (50.0-75.0); PLATELET COUNT 53 K/uL (130-400); RBC 3.47 Mil/uL (3.80-5.20); RED CELL DISTRIBUTION WIDTH 12.7 % (11.5-14.5)
[2017-03-18 12:15] LABS: ALBUMIN 3.9 g/dL (3.5-5.0)
[2017-03-18 12:18] LABS: ALB/GLOB RATIO 1.3 (1.0-2.1); CALCIUM 9.3 mg/dl (8.6-10.4)
[2017-03-18 12:38] LABS: BANDS 8 % (0-2); LYMPHOCYTE 11 % (20-40); MONOCYTE 15 % (0-10); MYELOCYTE 3 % (0-0); NEUTROPHIL 63 % (50-75); TOTAL CELLS COUNTED 100
--- NOTE | 2017-03-18 12:38 | CP.PCM.PN ---
<Ana Maria Brown - Last Filed: 03/18/17 12:41> Subjective - Date & Time of Evaluation Date of Evaluation: 03/18/17 Time of Evaluation: 07:00 - Subjective Subjective: PGY4 GI Fellow Progress Note Pt seen and examined at bedside. Pt denies any abdominal pain, nausea or vomiting. Pt reports not eating her breakfast this morning, does not like the pureed diet. Pt still having cough, wheezing and conversational dyspnea. ROS: A 12pt ROS was obtained and was negative except as mentioned above. Objective - Vital Signs/Intake and Output Vital Signs (last 24 hours): Temp Pulse Resp BP Pulse Ox 98.4 F 62 20 147/61 100 03/18/17 07:35 03/18/17 07:35 03/18/17 07:35 03/18/17 07:35 03/18/17 07:35 - Medications Medications: Current Medications Albuterol Sulfate (Albuterol 0.083% Inhal Juliana (2.5 Mg/3 Ml) Ud) 2.5 mg INH RQ2 PRN PRN Reason: Shortness of Breath Last Admin: 03/16/17 21:14 Dose: 2.5 mg Albuterol/Ipratropium (Duoneb 3 Mg/0.5 Mg (3 Ml) Ud) 3 ml INH RQ6 [facility] Last Admin: 03/18/17 07:33 Dose: 3 ml Aspirin (Ecotrin) 81 mg PO DAILY [facility] Last Admin: 03/18/17 10:55 Dose: 81 mg Divalproex Sodium (Depakote Sprinkles) 125 mg PO DAILY@1700 [facility] Last Admin: 03/17/17 18:59 Dose: 125 mg Donepezil HCl (Aricept) 10 mg PO DAILY [facility] Last Admin: 03/18/17 10:56 Dose: 10 mg Famotidine (Pepcid) 20 mg PO DAILY [facility] Last Admin: 03/18/17 10:56 Dose: 20 mg Guaifenesin (Robitussin) 200 mg PO Q4H PRN PRN Reason: Cough and congestion Last Admin: 03/18/17 04:00 Dose: 200 mg Azithromycin 500 mg/ Sodium (Chloride) 250 mls @ 250 mls/hr IVPB DAILY [facility] Last Admin: 03/18/17 10:56 Dose: 250 mls/hr Iron (Ferocon) 1 cap PO DAILY [facility] Last Admin: 03/18/17 10:55 Dose: 1 cap Memantine (Namenda) 10 mg PO DAILY [facility] Last Admin: 03/18/17 10:54 Dose: 10 mg Methylprednisolone (Solu-Medrol) 10 mg IV Q8 [facility] Last Admin: 03/18/17 06:43 Dose: 10 mg Metoprolol Tartrate (Lopressor) 50 mg PO BID [facility] Last Admin: 03/18/17 10:55 Dose: 50 mg Polyethylene Glycol (Miralax) 17 gm PO DAILY [facility] Last Admin: 03/18/17 10:58 Dose: 17 gm Potassium Chloride (K-Dur 20 Meq Er Tab) 20 meq PO DAILY [facility] Last Admin: 03/17/17 09:51 Dose: 20 meq Potassium Chloride (Klor-Con 10) 10 meq PO BRK [facility] Last Admin: 03/18/17 09:00 Dose: 10 meq - Labs Labs: 03/18/17 11:53 03/18/17 11:53 - Constitutional Appears: Well, No Acute Distress - Head Exam Head Exam: ATRAUMATIC, NORMAL INSPECTION, NORMOCEPHALIC - Eye Exam Eye Exam: EOMI, Normal appearance Pupil Exam: PERRL - ENT Exam ENT Exam: Mucous Membranes Moist, Normal Exam - Neck Exam Neck Exam: Full ROM, Normal Inspection - Respiratory Exam Respiratory Exam: Rhonchi, Wheezes, Respiratory Distress - Cardiovascular Exam Cardiovascular Exam: Tachycardia, REGULAR RHYTHM, +S1, +S2 - GI/Abdominal Exam GI & Abdominal Exam: Soft, Normal Bowel Sounds. absent: Distended, Rigid, Tenderness, Organomegaly - Rectal Exam Rectal Exam: Deferred - Extremities Exam Extremities Exam: Full ROM, Normal Inspection. absent: Pedal Edema - Back Exam Back Exam: NORMAL INSPECTION - Neurological Exam Neurological Exam: Alert, Awake - Psychiatric Exam Psychiatric exam: Normal Affect, Normal Mood - Skin Skin Exam: Dry, Normal Color, Warm Assessment and Plan - Assessment and Plan (Free Text) Assessment: This is a 86yF admitted with SOB and asthma exacerbation. Pt co of abdominal pain for a few months with reported weight loss. 1. Abdominal Pain 2. Esophageal dysmotility 3. Weight loss 3. Asthma Exacerbation 4. Thrombocytopenia 5. Alzheimer's Dementia Plan: Abdominal pain-Pt will benefit from upper endoscopy for further evaluation of abdominal pain, weight loss, and decreased appetite as an outpt once pulmonary status improves. At this time, continue miralax for bowel regimen and continue pepcid for reported reflux disease. Esophageal dysmotility- Upper GI series positive for mild dysmotility. Pt will benefit from a motility study but may not be able to actively participate in test 2/2 dementia so will need EGD for further evaluation and recommendations on treatment based on type of dysmotility. At this time, pt is not medically optimized for endoscopic evaluation, pulmonary status needs to improve. Weight loss: encourage po intake, advance diet to regular with ensure supplements, calorie count. Thrombocytopenia-maybe 2/ medication induced with valproic acid and pepcid, no active bleeding, continue to monitor Alzheimer's dementia-continue medication Asthma Exacerbation-medical management <Tip Stapleton - Last Filed: 03/18/17 13:25> Objective - Vital Signs/Intake and Output Vital Signs (last 24 hours): Temp Pulse Resp BP Pulse Ox 98.4 F 62 20 147/61 100 03/18/17 07:35 03/18/17 07:35 03/18/17 07:35 03/18/17 07:35 03/18/17 07:35 - Medications Medications: Current Medications Albuterol Sulfate (Albuterol 0.083% Inhal Juliana (2.5 Mg/3 Ml) Ud) 2.5 mg INH RQ2 PRN PRN Reason: Shortness of Breath Last Admin: 03/16/17 21:14 Dose: 2.5 mg Albuterol/Ipratropium (Duoneb 3 Mg/0.5 Mg (3 Ml) Ud) 3 ml INH RQ6 [facility] Last Admin: 03/18/17 07:33 Dose: 3 ml Aspirin (Ecotrin) 81 mg PO DAILY [facility] Last Admin: 03/18/17 10:55 Dose: 81 mg Divalproex Sodium (Depakote Sprinkles) 125 mg PO DAILY@1700 [facility] Last Admin: 03/17/17 18:59 Dose: 125 mg Donepezil HCl (Aricept) 10 mg PO DAILY [facility] Last Admin: 03/18/17 10:56 Dose: 10 mg Famotidine (Pepcid) 20 mg PO DAILY [facility] Last Admin: 03/18/17 10:56 Dose: 20 mg Guaifenesin (Robitussin) 200 mg PO Q4H PRN PRN Reason: Cough and congestion Last Admin: 03/18/17 04:00 Dose: 200 mg Azithromycin 500 mg/ Sodium (Chloride) 250 mls @ 250 mls/hr IVPB DAILY [facility] Last Admin: 03/18/17 10:56 Dose: 250 mls/hr Iron (Ferocon) 1 cap PO DAILY [facility] Last Admin: 03/18/17 10:55 Dose: 1 cap Memantine (Namenda) 10 mg PO DAILY [facility] Last Admin: 03/18/17 10:54 Dose: 10 mg Methylprednisolone (Solu-Medrol) 10 mg IV Q8 [facility] Last Admin: 03/18/17 06:43 Dose: 10 mg Metoprolol Tartrate (Lopressor) 50 mg PO BID [facility] Last Admin: 03/18/17 10:55 Dose: 50 mg Polyethylene Glycol (Miralax) 17 gm PO DAILY [facility] Last Admin: 03/18/17 10:58 Dose: 17 gm Potassium Chloride (K-Dur 20 Meq Er Tab) 20 meq PO DAILY [facility] Last Admin: 03/17/17 09:51 Dose: 20 meq Potassium Chloride (Klor-Con 10) 10 meq PO BRK [facility] Last Admin: 03/18/17 09:00 Dose: 10 meq - Labs Labs: 03/18/17 11:53 03/18/17 11:53 Attending/Attestation - Attestation I have personally seen and examined this patient.: Yes I have fully participated in the care of the patient.: Yes I have reviewed all pertinent clinical information, including history, physical exam and plan: Yes Notes (Text): 03/18/17 13:17 I have seen and examined patient with GI fellow. No acute events overnight, she denies abdominal pain, nausea, vomiting, fever/chills. She is tolerating puree consistency diet without difficulty. She continues to have audible wheezing during examination. Review of vitals from today are normal. Dyspnea, asthma exacerbation Abdominal pain -resolved Unexplained weight loss Upper GI series reviewed by me showing incomplete clearance of barium suggestive of underlying esophageal dysmotility - Diet as tolerated - Continue with PPI therapy - Treatment of asthma exacerbation as per medical team - Patient would benefit from EGD evaluation given intermittent pain and weight loss, however this can be performed electively as outpatient following medical and pulmonary optimization - We would also consider outpatient esophageal motility study for diagnosis of impaired motility disorder - Awaiting prior endoscopic records - No inpatient planned GI intervention, will sign off case. Suggest outpatient follow up after hospital discharge. Please reconsult as necessary, thank you.
[2017-03-18 12:39] LABS: ANISOCYTOSIS SLIGHT; GIANT PLATELETS PRESENT; HYPOCHROMIC SLIGHT; LARGE PLATELETS PRESENT; PLATELET ESTIMATE DECREASED (NORMAL); POIKILOCYTOSIS SLIGHT
--- NOTE | 2017-03-18 14:21 | CP.PCM.PN ---
Subjective - Date & Time of Evaluation Date of Evaluation: 03/17/17 Time of Evaluation: 19:35 - Subjective Subjective: Pt seen and examined, is coughing wheezing, less short of breath Objective - Vital Signs/Intake and Output Vital Signs (last 24 hours): Temp Pulse Resp BP Pulse Ox 98.4 F 62 20 147/61 100 03/18/17 07:35 03/18/17 07:35 03/18/17 07:35 03/18/17 07:35 03/18/17 07:35 - Medications Medications: Current Medications Albuterol Sulfate (Albuterol 0.083% Inhal Juliana (2.5 Mg/3 Ml) Ud) 2.5 mg INH RQ2 PRN PRN Reason: Shortness of Breath Last Admin: 03/16/17 21:14 Dose: 2.5 mg Albuterol/Ipratropium (Duoneb 3 Mg/0.5 Mg (3 Ml) Ud) 3 ml INH RQ6 [facility] Last Admin: 03/18/17 13:43 Dose: 3 ml Aspirin (Ecotrin) 81 mg PO DAILY [facility] Last Admin: 03/18/17 10:55 Dose: 81 mg Divalproex Sodium (Depakote Sprinkles) 125 mg PO DAILY@1700 [facility] Last Admin: 03/17/17 18:59 Dose: 125 mg Donepezil HCl (Aricept) 10 mg PO DAILY [facility] Last Admin: 03/18/17 10:56 Dose: 10 mg Famotidine (Pepcid) 20 mg PO DAILY [facility] Last Admin: 03/18/17 10:56 Dose: 20 mg Guaifenesin (Robitussin) 200 mg PO Q4H PRN PRN Reason: Cough and congestion Last Admin: 03/18/17 04:00 Dose: 200 mg Azithromycin 500 mg/ Sodium (Chloride) 250 mls @ 250 mls/hr IVPB DAILY [facility] Last Admin: 03/18/17 10:56 Dose: 250 mls/hr Iron (Ferocon) 1 cap PO DAILY [facility] Last Admin: 03/18/17 10:55 Dose: 1 cap Memantine (Namenda) 10 mg PO DAILY [facility] Last Admin: 03/18/17 10:54 Dose: 10 mg Methylprednisolone (Solu-Medrol) 10 mg IV Q8 [facility] Last Admin: 03/18/17 06:43 Dose: 10 mg Metoprolol Tartrate (Lopressor) 50 mg PO BID [facility] Last Admin: 03/18/17 10:55 Dose: 50 mg Polyethylene Glycol (Miralax) 17 gm PO DAILY [facility] Last Admin: 03/18/17 10:58 Dose: 17 gm Potassium Chloride (K-Dur 20 Meq Er Tab) 20 meq PO DAILY [facility] Last Admin: 03/17/17 09:51 Dose: 20 meq Potassium Chloride (Klor-Con 10) 10 meq PO BRK [facility] Last Admin: 03/18/17 09:00 Dose: 10 meq - Labs Labs: 03/18/17 11:53 03/18/17 11:53 - Constitutional Appears: No Acute Distress - Head Exam Head Exam: ATRAUMATIC, NORMAL INSPECTION, NORMOCEPHALIC - Eye Exam Eye Exam: EOMI, Normal appearance, PERRL Pupil Exam: NORMAL ACCOMODATION, PERRL - Respiratory Exam Respiratory Exam: Decreased Breath Sounds, Rales, Rhonchi, Wheezes - Cardiovascular Exam Cardiovascular Exam: REGULAR RHYTHM, +S1, +S2. absent: Murmur - GI/Abdominal Exam GI & Abdominal Exam: Soft, Normal Bowel Sounds. absent: Tenderness - Rectal Exam Rectal Exam: Deferred Assessment and Plan (1) Asthma exacerbation Status: Acute (2) Hypertension Status: Acute
--- NOTE | 2017-03-18 14:24 | CP.PCM.PN ---
Subjective - Date & Time of Evaluation Date of Evaluation: 03/18/17 Time of Evaluation: 09:55 - Subjective Subjective: PT SEEN & EXAMINED, NAD Objective - Vital Signs/Intake and Output Vital Signs (last 24 hours): Temp Pulse Resp BP Pulse Ox 98.4 F 62 20 147/61 100 03/18/17 07:35 03/18/17 07:35 03/18/17 07:35 03/18/17 07:35 03/18/17 07:35 - Medications Medications: Current Medications Albuterol Sulfate (Albuterol 0.083% Inhal Juliana (2.5 Mg/3 Ml) Ud) 2.5 mg INH RQ2 PRN PRN Reason: Shortness of Breath Last Admin: 03/16/17 21:14 Dose: 2.5 mg Albuterol/Ipratropium (Duoneb 3 Mg/0.5 Mg (3 Ml) Ud) 3 ml INH RQ6 [facility] Last Admin: 03/18/17 13:43 Dose: 3 ml Aspirin (Ecotrin) 81 mg PO DAILY [facility] Last Admin: 03/18/17 10:55 Dose: 81 mg Divalproex Sodium (Depakote Sprinkles) 125 mg PO DAILY@1700 [facility] Last Admin: 03/17/17 18:59 Dose: 125 mg Donepezil HCl (Aricept) 10 mg PO DAILY [facility] Last Admin: 03/18/17 10:56 Dose: 10 mg Famotidine (Pepcid) 20 mg PO DAILY [facility] Last Admin: 03/18/17 10:56 Dose: 20 mg Guaifenesin (Robitussin) 200 mg PO Q4H PRN PRN Reason: Cough and congestion Last Admin: 03/18/17 04:00 Dose: 200 mg Azithromycin 500 mg/ Sodium (Chloride) 250 mls @ 250 mls/hr IVPB DAILY [facility] Last Admin: 03/18/17 10:56 Dose: 250 mls/hr Iron (Ferocon) 1 cap PO DAILY [facility] Last Admin: 03/18/17 10:55 Dose: 1 cap Memantine (Namenda) 10 mg PO DAILY [facility] Last Admin: 03/18/17 10:54 Dose: 10 mg Methylprednisolone (Solu-Medrol) 10 mg IV Q8 [facility] Last Admin: 03/18/17 06:43 Dose: 10 mg Metoprolol Tartrate (Lopressor) 50 mg PO BID [facility] Last Admin: 03/18/17 10:55 Dose: 50 mg Polyethylene Glycol (Miralax) 17 gm PO DAILY [facility] Last Admin: 03/18/17 10:58 Dose: 17 gm Potassium Chloride (K-Dur 20 Meq Er Tab) 20 meq PO DAILY [facility] Last Admin: 03/17/17 09:51 Dose: 20 meq Potassium Chloride (Klor-Con 10) 10 meq PO BRK [facility] Last Admin: 03/18/17 09:00 Dose: 10 meq - Labs Labs: 03/18/17 11:53 03/18/17 11:53 Assessment and Plan (1) Asthma exacerbation Status: Acute (2) Hypertension Status: Acute
--- NOTE | 2017-03-18 17:15 | CP.PCM.PN ---
Subjective - Date & Time of Evaluation Date of Evaluation: 03/18/17 Time of Evaluation: 09:20 - Subjective Subjective: patient seen and examined. Sitting comfortably in no acute distress Less wheezing and shortness of breath Objective - Vital Signs/Intake and Output Vital Signs (last 24 hours): Temp Pulse Resp BP Pulse Ox 98.1 F 68 20 158/79 H 95 03/18/17 16:00 03/18/17 16:00 03/18/17 16:00 03/18/17 16:00 03/18/17 16:00 - Medications Medications: Current Medications Albuterol Sulfate (Albuterol 0.083% Inhal Juliana (2.5 Mg/3 Ml) Ud) 2.5 mg INH RQ2 PRN PRN Reason: Shortness of Breath Last Admin: 03/16/17 21:14 Dose: 2.5 mg Albuterol/Ipratropium (Duoneb 3 Mg/0.5 Mg (3 Ml) Ud) 3 ml INH RQ6 [facility] Last Admin: 03/18/17 13:43 Dose: 3 ml Aspirin (Ecotrin) 81 mg PO DAILY [facility] Last Admin: 03/18/17 10:55 Dose: 81 mg Divalproex Sodium (Depakote Sprinkles) 125 mg PO DAILY@1700 [facility] Last Admin: 03/17/17 18:59 Dose: 125 mg Donepezil HCl (Aricept) 10 mg PO DAILY [facility] Last Admin: 03/18/17 10:56 Dose: 10 mg Famotidine (Pepcid) 20 mg PO DAILY [facility] Last Admin: 03/18/17 10:56 Dose: 20 mg Guaifenesin (Robitussin) 200 mg PO Q4H PRN PRN Reason: Cough and congestion Last Admin: 03/18/17 04:00 Dose: 200 mg Azithromycin 500 mg/ Sodium (Chloride) 250 mls @ 250 mls/hr IVPB DAILY [facility] Last Admin: 03/18/17 10:56 Dose: 250 mls/hr Iron (Ferocon) 1 cap PO DAILY [facility] Last Admin: 03/18/17 10:55 Dose: 1 cap Memantine (Namenda) 10 mg PO DAILY [facility] Last Admin: 03/18/17 10:54 Dose: 10 mg Methylprednisolone (Solu-Medrol) 10 mg IV Q8 [facility] Last Admin: 03/18/17 14:22 Dose: 10 mg Metoprolol Tartrate (Lopressor) 50 mg PO BID [facility] Last Admin: 03/18/17 10:55 Dose: 50 mg Polyethylene Glycol (Miralax) 17 gm PO DAILY [facility] Last Admin: 03/18/17 10:58 Dose: 17 gm Potassium Chloride (K-Dur 20 Meq Er Tab) 20 meq PO DAILY [facility] Last Admin: 03/17/17 09:51 Dose: 20 meq Potassium Chloride (Klor-Con 10) 10 meq PO BRK [facility] Last Admin: 03/18/17 09:00 Dose: 10 meq - Labs Labs: 03/18/17 11:53 03/18/17 11:53 - Head Exam Head Exam: ATRAUMATIC, NORMOCEPHALIC - Eye Exam Eye Exam: Normal appearance - ENT Exam ENT Exam: Mucous Membranes Moist - Neck Exam Neck Exam: Normal Inspection - Respiratory Exam Respiratory Exam: Rhonchi, Wheezes - Cardiovascular Exam Cardiovascular Exam: REGULAR RHYTHM - GI/Abdominal Exam GI & Abdominal Exam: Soft, Normal Bowel Sounds - Extremities Exam Extremities Exam: Full ROM, Normal Inspection Assessment and Plan (1) Asthma Assessment & Plan: continue nebulizer treatment and taper steroids Status: Acute
[2017-03-18] MEDS: Divalproex 125 mg Sprinkle Capsule PO SCH (18:11)
[2017-03-18] MEDS: Albuterol 0.083% Inhal Sol (2.5 mg/3 mL) UD INH PRN (21:43)
[2017-03-19] MEDS: Albuterol 0.083% Inhal Sol (2.5 mg/3 mL) UD INH PRN (01:08)
[2017-03-19] MEDS: Albuterol-Ipratrop 3 mg / 0.5 (3 ml) UD INH SCH ×4 (01:11→19:42)
[2017-03-19] MEDS: guaiFENesin 200 mg/10 ml Syrup UD PO PRN ×2 (06:12→17:57)
[2017-03-19] MEDS: MethylPREDNISolone 40 mg Vial IV SCH ×2 (06:12→15:24)
[2017-03-19] MEDS: Azithromycin 500 MG in Sodium Chloride 0.9% 250 ML IVPB SCH (09:49)
[2017-03-19] MEDS: Ferrous Fum/Folic Acid/IF/VI 1 Cap PO SCH (09:49)
[2017-03-19] MEDS: Potassium Chloride 10 mEq ER Tab PO SCH (09:49)
[2017-03-19] MEDS: Potassium Chloride 20 mEq ER Tab PO SCH ×2 (12:37→12:38)
[2017-03-19] MEDS: POLYETHYLENE GLYCOL 3350 17 GM/Dose PACKET PO SCH (15:19)
--- NOTE | 2017-03-19 17:48 | CP.PCM.PN ---
Subjective - Date & Time of Evaluation Date of Evaluation: 03/19/17 Time of Evaluation: 11:00 - Subjective Subjective: Patient seen and examined. Denies shortness of breath but complaining of slight cough Wheezing much improved Objective - Vital Signs/Intake and Output Vital Signs (last 24 hours): Temp Pulse Resp BP Pulse Ox 98 F 66 18 177/66 H 95 03/19/17 15:00 03/19/17 15:00 03/19/17 15:00 03/19/17 15:00 03/19/17 15:00 - Medications Medications: Current Medications Albuterol Sulfate (Albuterol 0.083% Inhal Juliana (2.5 Mg/3 Ml) Ud) 2.5 mg INH RQ2 PRN PRN Reason: Shortness of Breath Last Admin: 03/19/17 01:08 Dose: 2.5 mg Albuterol/Ipratropium (Duoneb 3 Mg/0.5 Mg (3 Ml) Ud) 3 ml INH RQ6 [facility] Last Admin: 03/19/17 14:51 Dose: Not Given Aspirin (Ecotrin) 81 mg PO DAILY [facility] Last Admin: 03/19/17 09:49 Dose: 81 mg Divalproex Sodium (Depakote Sprinkles) 125 mg PO DAILY@1700 [facility] Last Admin: 03/18/17 18:11 Dose: 125 mg Donepezil HCl (Aricept) 10 mg PO DAILY [facility] Last Admin: 03/19/17 09:49 Dose: 10 mg Famotidine (Pepcid) 20 mg PO DAILY [facility] Last Admin: 03/19/17 09:49 Dose: 20 mg Guaifenesin (Robitussin) 200 mg PO Q4H PRN PRN Reason: Cough and congestion Last Admin: 03/19/17 06:12 Dose: 200 mg Azithromycin 500 mg/ Sodium (Chloride) 250 mls @ 250 mls/hr IVPB DAILY [facility] Last Admin: 03/19/17 09:49 Dose: 250 mls/hr Iron (Ferocon) 1 cap PO DAILY [facility] Last Admin: 03/19/17 09:49 Dose: 1 cap Memantine (Namenda) 10 mg PO DAILY [facility] Last Admin: 03/19/17 09:49 Dose: 10 mg Metoprolol Tartrate (Lopressor) 50 mg PO BID [facility] Last Admin: 07/07/17 09:49 Dose: 50 mg Polyethylene Glycol (Miralax) 17 gm PO DAILY [facility] Last Admin: 03/19/17 15:19 Dose: Not Given Potassium Chloride (K-Dur 20 Meq Er Tab) 20 meq PO DAILY [facility] Last Admin: 03/19/17 12:38 Dose: Not Given Potassium Chloride (Klor-Con 10) 10 meq PO BRK [facility] Last Admin: 03/19/17 09:49 Dose: 10 meq Prednisone (Prednisone Tab) 10 mg PO DAILY [facility] - Labs Labs: 03/18/17 11:53 03/18/17 11:53 - Head Exam Head Exam: ATRAUMATIC, NORMOCEPHALIC - Eye Exam Eye Exam: Normal appearance - ENT Exam ENT Exam: Mucous Membranes Moist - Neck Exam Neck Exam: Normal Inspection - Respiratory Exam Respiratory Exam: Rhonchi - Cardiovascular Exam Cardiovascular Exam: REGULAR RHYTHM - GI/Abdominal Exam GI & Abdominal Exam: Soft, Normal Bowel Sounds Assessment and Plan (1) Asthma Assessment & Plan: Continue prednisone 10 mg once daily Continue nebulizer treatment Stable from pulmonary standpoint Status: Acute
[2017-03-19] MEDS: Divalproex 125 mg Sprinkle Capsule PO SCH (17:57)
[2017-03-20 01:13] VITALS: RESP 20
[2017-03-20] MEDS: Albuterol-Ipratrop 3 mg / 0.5 (3 ml) UD INH SCH ×4 (01:21→20:14)
[2017-03-20] MEDS: guaiFENesin 200 mg/10 ml Syrup UD PO PRN ×2 (03:23→17:56)
--- NOTE | 2017-03-20 07:15 | CP.PCM.PN ---
Subjective - Date & Time of Evaluation Date of Evaluation: 03/19/17 Time of Evaluation: 20:50 - Subjective Subjective: patient seen and examined. Sitting comfortably in no acute distress Less cough, less wheezing and shortness of breath on taper steroids also seen by pulmonology Objective - Vital Signs/Intake and Output Vital Signs (last 24 hours): Temp Pulse Resp BP Pulse Ox 98.0 F 64 20 158/71 H 97 03/20/17 04:20 03/20/17 04:20 03/20/17 04:20 03/20/17 04:20 03/20/17 04:20 - Medications Medications: Current Medications Albuterol Sulfate (Albuterol 0.083% Inhal Juliana (2.5 Mg/3 Ml) Ud) 2.5 mg INH RQ2 PRN PRN Reason: Shortness of Breath Last Admin: 03/19/17 01:08 Dose: 2.5 mg Albuterol/Ipratropium (Duoneb 3 Mg/0.5 Mg (3 Ml) Ud) 3 ml INH RQ6 [facility] Last Admin: 03/20/17 01:21 Dose: 3 ml Aspirin (Ecotrin) 81 mg PO DAILY [facility] Last Admin: 03/19/17 09:49 Dose: 81 mg Divalproex Sodium (Depakote Sprinkles) 125 mg PO DAILY@1700 [facility] Last Admin: 03/19/17 17:57 Dose: 125 mg Donepezil HCl (Aricept) 10 mg PO DAILY [facility] Last Admin: 03/19/17 09:49 Dose: 10 mg Famotidine (Pepcid) 20 mg PO DAILY [facility] Last Admin: 03/19/17 09:49 Dose: 20 mg Guaifenesin (Robitussin) 200 mg PO Q4H PRN PRN Reason: Cough and congestion Last Admin: 03/20/17 03:23 Dose: 200 mg Azithromycin 500 mg/ Sodium (Chloride) 250 mls @ 250 mls/hr IVPB DAILY [facility] Last Admin: 03/19/17 09:49 Dose: 250 mls/hr Iron (Ferocon) 1 cap PO DAILY [facility] Last Admin: 03/19/17 09:49 Dose: 1 cap Memantine (Namenda) 10 mg PO DAILY [facility] Last Admin: 03/19/17 09:49 Dose: 10 mg Metoprolol Tartrate (Lopressor) 50 mg PO BID [facility] Last Admin: 03/19/17 17:58 Dose: 50 mg Polyethylene Glycol (Miralax) 17 gm PO DAILY [facility] Last Admin: 03/19/17 15:19 Dose: Not Given Potassium Chloride (K-Dur 20 Meq Er Tab) 20 meq PO DAILY [facility] Last Admin: 03/19/17 12:38 Dose: Not Given Potassium Chloride (Klor-Con 10) 10 meq PO BRK [facility] Last Admin: 03/19/17 09:49 Dose: 10 meq Prednisone (Prednisone Tab) 10 mg PO DAILY [facility] Last Admin: 03/19/17 17:57 Dose: 10 mg - Labs Labs: 03/18/17 11:53 03/18/17 11:53 - Constitutional Appears: No Acute Distress - Head Exam Head Exam: ATRAUMATIC, NORMAL INSPECTION, NORMOCEPHALIC - Eye Exam Eye Exam: EOMI, Normal appearance, PERRL Pupil Exam: NORMAL ACCOMODATION, PERRL - Respiratory Exam Respiratory Exam: Decreased Breath Sounds, Rales, Rhonchi, Wheezes - Cardiovascular Exam Cardiovascular Exam: REGULAR RHYTHM, +S1, +S2. absent: Murmur - GI/Abdominal Exam GI & Abdominal Exam: Soft, Normal Bowel Sounds. absent: Tenderness - Neurological Exam Neurological Exam: Alert, Awake, CN II-XII Intact, Normal Gait, Oriented x3 Assessment and Plan (1) Asthma exacerbation Status: Acute (2) Hypertension Status: Acute
--- NOTE | 2017-03-20 07:28 | CP.PCM.PN ---
Subjective - Date & Time of Evaluation Date of Evaluation: 03/19/17 Time of Evaluation: 21:45 - Subjective Subjective: patient seen and examined. Sitting comfortably in no acute distress Less cough, less wheezing and shortness of breath on taper steroids also seen by pulmonology Objective - Vital Signs/Intake and Output Vital Signs (last 24 hours): Temp Pulse Resp BP Pulse Ox 98.0 F 64 20 158/71 H 97 03/20/17 04:20 03/20/17 04:20 03/20/17 04:20 03/20/17 04:20 03/20/17 04:20 - Medications Medications: Current Medications Albuterol Sulfate (Albuterol 0.083% Inhal Juliana (2.5 Mg/3 Ml) Ud) 2.5 mg INH RQ2 PRN PRN Reason: Shortness of Breath Last Admin: 03/19/17 01:08 Dose: 2.5 mg Albuterol/Ipratropium (Duoneb 3 Mg/0.5 Mg (3 Ml) Ud) 3 ml INH RQ6 [facility] Last Admin: 03/20/17 01:21 Dose: 3 ml Aspirin (Ecotrin) 81 mg PO DAILY [facility] Last Admin: 03/19/17 09:49 Dose: 81 mg Divalproex Sodium (Depakote Sprinkles) 125 mg PO DAILY@1700 [facility] Last Admin: 03/19/17 17:57 Dose: 125 mg Donepezil HCl (Aricept) 10 mg PO DAILY [facility] Last Admin: 03/19/17 09:49 Dose: 10 mg Famotidine (Pepcid) 20 mg PO DAILY [facility] Last Admin: 03/19/17 09:49 Dose: 20 mg Guaifenesin (Robitussin) 200 mg PO Q4H PRN PRN Reason: Cough and congestion Last Admin: 03/20/17 03:23 Dose: 200 mg Azithromycin 500 mg/ Sodium (Chloride) 250 mls @ 250 mls/hr IVPB DAILY [facility] Last Admin: 03/19/17 09:49 Dose: 250 mls/hr Iron (Ferocon) 1 cap PO DAILY [facility] Last Admin: 03/19/17 09:49 Dose: 1 cap Memantine (Namenda) 10 mg PO DAILY [facility] Last Admin: 03/19/17 09:49 Dose: 10 mg Metoprolol Tartrate (Lopressor) 50 mg PO BID [facility] Last Admin: 03/19/17 17:58 Dose: 50 mg Polyethylene Glycol (Miralax) 17 gm PO DAILY [facility] Last Admin: 03/19/17 15:19 Dose: Not Given Potassium Chloride (K-Dur 20 Meq Er Tab) 20 meq PO DAILY [facility] Last Admin: 03/19/17 12:38 Dose: Not Given Potassium Chloride (Klor-Con 10) 10 meq PO BRK [facility] Last Admin: 03/19/17 09:49 Dose: 10 meq Prednisone (Prednisone Tab) 10 mg PO DAILY [facility] Last Admin: 03/19/17 17:57 Dose: 10 mg - Labs Labs: 03/18/17 11:53 03/18/17 11:53 - Constitutional Appears: No Acute Distress - Head Exam Head Exam: ATRAUMATIC, NORMAL INSPECTION, NORMOCEPHALIC - Respiratory Exam Respiratory Exam: Decreased Breath Sounds, Rhonchi, Wheezes - Cardiovascular Exam Cardiovascular Exam: REGULAR RHYTHM, +S1, +S2. absent: Murmur - GI/Abdominal Exam GI & Abdominal Exam: Soft, Normal Bowel Sounds. absent: Tenderness Assessment and Plan (1) Asthma exacerbation Status: Acute (2) Hypertension Status: Acute
[2017-03-20] MEDS: Potassium Chloride 10 mEq ER Tab PO SCH (07:46)
[2017-03-20] MEDS: Azithromycin 500 MG in Sodium Chloride 0.9% 250 ML IVPB SCH (09:50)
[2017-03-20] MEDS: Ferrous Fum/Folic Acid/IF/VI 1 Cap PO SCH (09:50)
[2017-03-20] MEDS: POLYETHYLENE GLYCOL 3350 17 GM/Dose PACKET PO SCH (09:52)
[2017-03-20 15:20] VITALS: BP 173/84; TEMP 98
[2017-03-20 16:23] VITALS: PULSE 74; O2SAT 90
--- NOTE | 2017-03-20 16:45 | CP.PCM.PN ---
Subjective - Date & Time of Evaluation Date of Evaluation: 03/20/17 Time of Evaluation: 16:00 - Subjective Subjective: Pt seen an dexamine d today, sob improved, c/o cough a febrile Objective - Vital Signs/Intake and Output Vital Signs (last 24 hours): Temp Pulse Resp BP Pulse Ox 98 F 74 20 173/84 H 90 L 03/20/17 15:16 03/20/17 15:59 03/20/17 15:16 03/20/17 15:16 03/20/17 15:59 - Medications Medications: Current Medications Albuterol Sulfate (Albuterol 0.083% Inhal Juliana (2.5 Mg/3 Ml) Ud) 2.5 mg INH RQ2 PRN PRN Reason: Shortness of Breath Last Admin: 03/19/17 01:08 Dose: 2.5 mg Albuterol/Ipratropium (Duoneb 3 Mg/0.5 Mg (3 Ml) Ud) 3 ml INH RQ6 [facility] Last Admin: 03/20/17 14:10 Dose: 3 ml Aspirin (Ecotrin) 81 mg PO DAILY [facility] Last Admin: 03/20/17 09:50 Dose: 81 mg Divalproex Sodium (Depakote Sprinkles) 125 mg PO DAILY@1700 [facility] Last Admin: 03/19/17 17:57 Dose: 125 mg Donepezil HCl (Aricept) 10 mg PO DAILY [facility] Last Admin: 03/20/17 09:50 Dose: 10 mg Famotidine (Pepcid) 20 mg PO DAILY [facility] Last Admin: 03/20/17 09:50 Dose: 20 mg Guaifenesin (Robitussin) 200 mg PO Q4H PRN PRN Reason: Cough and congestion Last Admin: 03/20/17 03:23 Dose: 200 mg Azithromycin 500 mg/ Sodium (Chloride) 250 mls @ 250 mls/hr IVPB DAILY [facility] Last Admin: 03/20/17 09:50 Dose: 250 mls/hr Iron (Ferocon) 1 cap PO DAILY [facility] Last Admin: 03/20/17 09:50 Dose: 1 cap Losartan Potassium (Cozaar) 50 mg PO DAILY [facility] Memantine (Namenda) 10 mg PO DAILY [facility] Last Admin: 03/20/17 09:50 Dose: 10 mg Metoprolol Tartrate (Lopressor) 50 mg PO BID [facility] Last Admin: 03/20/17 09:50 Dose: 50 mg Polyethylene Glycol (Miralax) 17 gm PO DAILY [facility] Last Admin: 03/20/17 09:52 Dose: Not Given Potassium Chloride (Klor-Con 10) 10 meq PO BRK [facility] Last Admin: 03/20/17 07:46 Dose: Not Given Prednisone (Prednisone Tab) 10 mg PO DAILY [facility] Last Admin: 03/20/17 09:50 Dose: 10 mg - Labs Labs: 03/18/17 11:53 03/18/17 11:53 - Constitutional Appears: Well, No Acute Distress - Respiratory Exam Respiratory Exam: Decreased Breath Sounds, Rhonchi, NORMAL BREATHING PATTERN Assessment and Plan - Assessment and Plan (Free Text) Assessment: A/P 86 yr old female admitted for exc. Asthma pt clinically improved after iv steroids seen by Dr. Corona, stable for discharge home today with taper dose of prednisone and d f/u wiht PMD in 1 week Discharge plan discussed with patient daughter , who understands and agrees with plan
[2017-03-20] MEDS ORDERED: Pneumococcal 23-Valent Vaccine IM ONE (17:27)
[2017-03-20] MEDS: Divalproex 125 mg Sprinkle Capsule PO SCH (17:56)
--- NOTE | 2017-03-20 19:23 | CARD ---
APPROVED REPORT EKG Measurement Heart [id number] NM [id number] <Conclusion> Ventricular-paced rhythm Abnormal ECG
== END 2017-03-20 19:40 | disposition home or self-care (01) | DRG 96 ==
LOC: C.ER 09:56 → C.9E 13:00 → C.6T 13:15 → OBSVTOIN 03-18 10:07
PROVIDERS: ADMIT Internal Medicine; ATTEND Internal Medicine
DX: J45.901 Unspecified asthma with (acute) exacerbation (principal); D69.6 Thrombocytopenia, unspecified; G30.9 Alzheimer's disease, unspecified; F02.80 Dementia in other diseases classified elsewhere, unspecified severity, without behavioral disturbance, psychotic disturbance, mood disturbance, and anxiety; I44.30 Unspecified atrioventricular block; I10 Essential (primary) hypertension; G89.29 Other chronic pain; K21.9 Gastro-esophageal reflux disease without esophagitis; K22.4 Dyskinesia of esophagus; Z85.42 Personal history of malignant neoplasm of other parts of uterus; Z90.710 Acquired absence of both cervix and uterus; Z95.0 Presence of cardiac pacemaker; Z23 Encounter for immunization